=== PATIENT | female | born 1990 | race Caucasian/White ===

== ENCOUNTER 2016-09-10 22:21 | Emergency (ER) | payer OTHER ==
[2016-09-10 23:41] LABS: RED BLOOD COUNT 4.08 M/UL (4.00-5.10); WHITE BLOOD COUNT 17.1 K/UL (4.5-11.0)
[2016-09-11 00:12] LABS: BUN/CREATININE RATIO 21 (0-10)
== END 2016-09-11 03:45 | disposition home or self-care (01) ==
LOC: ER1 22:21
PROVIDERS: Family Medicine
DX: R10.11 Right upper quadrant pain (principal); R11.0 Nausea; N20.0 Calculus of kidney; F17.210 Nicotine dependence, cigarettes, uncomplicated
CPT/HCPCS: 36415; 80053; 81001; 82150; 83690; 84703; 85025; 87086; 96374; 96375; 99284; J1885; J2405; J7050; Q9962

== ENCOUNTER → 2016-09-18 | Outpatient (CLI) | payer OTHER | LOC: US 08:00 | DX: K82.0 Obstruction of gallbladder (principal) | CPT/HCPCS: 76705 ==